=== PATIENT | female | born 1980 | race African-American/Black ===

== ENCOUNTER 2019-12-03 17:12 | Emergency (ER) | payer MEDICARE, MEDICAID ==
[~2019-12-03] VITALS: Ht 167.6 cm; Wt 81.4 kg
--- NOTE | 2019-12-03 17:58 | NUR ---
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
--- NOTE | 2019-12-03 18:12 | NUR ---
PT LAYING IN BED, EYES CLOSED, MOANING IN PAIN. VSS. PT MADE STATEMENTS, "I NEED AN IV, I NEED PAIN MEDS AND SOMETHING FOR MY NAUSEA, I NEED SOMEONE TO CARE."
[2019-12-03] MEDS ORDERED: SODIUM CHLORIDE 0.9% 1,000ML IVBOLUS ONE (18:30)
[2019-12-03] MEDS ORDERED: ONDANSETRON 2MG/ML, 2ML IVPush ONE ×2 (18:30→21:00)
[2019-12-03] MEDS ORDERED: SODIUM CHLORIDE FLUSH 10ML SYR IVF ONE (18:30)
[2019-12-03] MEDS ORDERED: MORPHINE SULFATE 4 MG/ML, 1ML IVPush PRN (18:30)
[2019-12-03 18:57] LABS: ALANINE AMINOTRANSFERASE 16 U/L (12-78); ALBUMIN 3.8 g/dL (3.4-5.0); ANION GAP 4 mmol/L (5-15); CHLORIDE 106 mmol/L (98-107); CREATININE 0.77 mg/dL (0.55-1.02)
--- NOTE | 2019-12-03 18:57 | NUR ---
US CALLED, PT REFUSED IMAGING UNTIL SHE RECEIVES PAIN MEDS, IV START ATTEMPTED. REPORT GIVEN TO NIRU YOUNG. SHE IS AWARE TO START IV.
[2019-12-03 18:59] LABS: ALKALINE PHOSPHATASE 66 U/L (45-117); BILIRUBIN,TOTAL 0.2 mg/dL (0.2-1.0); TOTAL PROTEIN 8.1 g/dL (6.4-8.2)
[2019-12-03 19:08] LABS: BASOPHILS # (AUTO) 0.05 x10^3/uL (0-0.1); BASOPHILS % (AUTO) 1 % (0-1); EOSINOPHILS % (AUTO) 0 % (1-7); LYMPHOCYTES # (AUTO) 1.02 x10^3/uL (1-3.4); LYMPHOCYTES % (AUTO) 10 % (22-44); MD MORPH REVIEW ONLY; MEAN CORPUSCULAR HEMOGLOBIN 24.5 pg (27.0-34.8); MEAN CORPUSCULAR HGB CONC 31.6 g/dL (32.4-35.8); MEAN CORPUSCULAR VOLUME 77.6 fL (80-100); MEAN PLATELET VOLUME 11.1 fL (7.4-10.4); MONOCYTES # (AUTO) 0.06 x10^3/uL (0.2-0.8); MONOCYTES % (AUTO) 1 % (2-9); NEUTROPHILS # (AUTO) 9.38 x10^3/uL (1.8-6.8); NEUTROPHILS % (AUTO) 89 % (42-75); PLATELET COUNT 201 x10^3/uL (130-400); RED BLOOD COUNT 4.44 x10^6/uL (3.82-5.3); RED CELL DISTRIBUTION WIDTH 19.5 % (9.6-15.2)
[2019-12-03] MEDS ORDERED: ONDANSETRON 2MG/ML, 2ML ONE ×2 (19:08→20:56)
[2019-12-03] MEDS ORDERED: MORPHINE SULFATE 4 MG/ML, 1ML ONE (19:08)
[2019-12-03 19:10] LABS: ANISOCYTOSIS 1+; MICROCYTOSIS 1+
[2019-12-03 19:11] LABS: HCG UR SG 1.026 (1.003-1.030)
[2019-12-03 19:11] LABS: <PLATELET ESTIMATE> ADEQUATE; GIANT PLATELETS 1+; LARGE PLATELETS 1+; OVALOCYTES 1+
[2019-12-03 19:13] LABS: MICROSCOPIC INDICATED
[2019-12-03 19:38] LABS: CULTURE INDICATED? NO
--- NOTE | 2019-12-03 20:10 | NUR ---
[facility] CALLED AND NOTIFIED PT READY FOR SCAN
[2019-12-03 20:38] VITALS: BP 163/77
--- NOTE | 2019-12-03 20:40 | NUR ---
PT RESTING ON GURNEY, REQUESTIONG MORE PAIN MEDICATION FOR CONTINUED ABD PAIN, CALL LIGHT WITHIN REACH
[2019-12-03] MEDS ORDERED: KETOROLAC 30 MG/1 ML ONE (20:43)
--- NOTE | 2019-12-03 20:47 | NUR ---
PROVIDED PT WITH ICE CHIPS. MEDICATED PER MAR
[2019-12-03] MEDS ORDERED: KETOROLAC 30 MG/1 ML IVPush ONE (21:00)
== END 2019-12-03 21:07 | disposition home or self-care (01) ==
LOC: ED 18:14
DX: R10.84 Generalized abdominal pain (principal); R11.2 Nausea with vomiting, unspecified; E86.0 Dehydration; I10 Essential (primary) hypertension
CPT/HCPCS: 36415; 76700; 80053; 81001; 81025; 83690; 85025; 96361; 96374; 96375; 96376; 99284; J1885; J2270; J2405; J7030